=== PATIENT | female | born 1995 | race Two or more races ===

== ENCOUNTER 2024-02-11 08:19 | Outpatient (CLI) | payer OTHER ==
[2024-02-11 09:14] LABS: PH,URINE 5.5 (5.0-8.0); URINE APPEARANCE Clear; URINE BILIRRUBIN Negative (NEGATIVE); URINE BLOOD Negative; URINE COLOR Yellow; URINE GLUCOSE Negative (NEGATIVE); URINE KETONE Negative (NEGATIVE); URINE LEUKOCYTE Negative; URINE NITRATE Negative; URINE PROTEIN Negative (NEGATIVE); URINE UROBILINOGEN 0.2 E.U./dl
[2024-02-11 09:18] LABS: HEMATOCRIT 40.1 % (36.0-45.00); HEMOGLOBIN 13.4 g/dL (12.0-15.00); MEAN CELL VOLUME 84.6 fL (80.00-100.00); MEAN CORPUSCULAR HEMOGLOBIN 28.3 pg (27.00-32.0); MEAN CORPUSCULAR HGB CONC 33.4 g/dl (32.0-36.0); PLATELET COUNT 150 K/uL (150-450); RED BLOOD COUNT 4.74 M/uL (4.00-6.00); RED CELL DISTRIBUTION WIDTH 14.6 % (11.5-14.5)
[2024-02-11 09:18] LABS: URINE EPITHELIAL CELLS 75.9 uL (0.0-38.8); URINE RBC 5.1 uL (0.0-20.8); URINE WBC 19.6 uL (0.0-23.2)
[2024-02-11 10:13] LABS: ALBUMIN 3.8 gm/dL (3.4-5.0); BILIRUBIN TOTAL 0.47 mg/dL (0.3-1.2); BILIRUBIN,CONJUGATED 0.15 mg/dL (0.0-0.2); BILIRUBIN,UNCONJUGATED 0.32 mg/dL (0.0-0.6); CALCIUM 8.9 mg/dL (8.5-10.1); CREATININE SERUM 0.6 mg/dL (0.55-1.02); GFR 119.04; GLOBULINA 3.4 G/DL (2.4-3.5); POTASSIUM 4.06 mEq/L (3.5-5.1); T4 TOTAL 8.62 UG/DL (4.8-13.9); TOTAL PROTEIN 7.2 gm/dL (6.4-8.2); TSH 1.36 uIU/mL (0.358-3.74)
[2024-02-13 12:02] LABS: FOLIC ACID 17.13 ng/ml (4.78-20); T3 TOTAL 1.29 ng/ml (0.846-2.02); VITAMIN D3 25 HYDROXY 23.28 ng/ml (30-120)
== END 2024-02-11 08:25 | disposition home or self-care (01) ==
LOC: LAB 08:19
PROVIDERS: ATTEND Surgery
DX: N39.0 Urinary tract infection, site not specified (principal); D46.4 Refractory anemia, unspecified; E11.9 Type 2 diabetes mellitus without complications; E03.9 Hypothyroidism, unspecified; E54 Ascorbic acid deficiency; E55.9 Vitamin D deficiency, unspecified; D51.9 Vitamin B12 deficiency anemia, unspecified; B96.81 Helicobacter pylori [H. pylori] as the cause of diseases classified elsewhere; K73.8 Other chronic hepatitis, not elsewhere classified; R79.89 Other specified abnormal findings of blood chemistry; K72.00 Acute and subacute hepatic failure without coma

== ENCOUNTER → 2024-02-23 10:32 | Outpatient (CLI) | payer OTHER | END | disposition home or self-care (01) | LOC: LAB 10:32 | PROVIDERS: ATTEND Surgery | DX: N39.0 Urinary tract infection, site not specified (principal); D46.4 Refractory anemia, unspecified; E11.9 Type 2 diabetes mellitus without complications; E03.9 Hypothyroidism, unspecified; E54 Ascorbic acid deficiency; E55.9 Vitamin D deficiency, unspecified; D51.9 Vitamin B12 deficiency anemia, unspecified; B96.81 Helicobacter pylori [H. pylori] as the cause of diseases classified elsewhere ==